=== PATIENT | female | born 1945 | race Caucasian/White ===

== ENCOUNTER 2016-11-29 12:45 | Emergency (ER) | payer OTHER ==
[2016-11-29 13:21] LABS: BILIRUBIN,URINE NEGATIVE (NEGATIVE); PH,URINE 5.5 PH (5.0-7.5)
[2016-11-29 13:30] LABS: UA w/ MICROSCOPIC CHARGE YES
[2016-11-29 13:40] LABS: UR CULTURE IF IND INDICATED; WBC,URINE >25 /HPF (0-5)
[2016-11-29] MEDS ORDERED: levoFLOXacin 250 MG TABLET PO STA (15:00)
--- NOTE | 2016-11-29 15:02 | ED Physician Documentation ---
PD HPI FEMALE - Stated complaint Stated Complaint: UTI - Chief complaint Chief Complaint: UTI - History obtained from History obtained from: Patient - History of Present Illness Timing - onset: Yesterday Timing - details: Abrupt onset (burning and dysuria, no fevers, nausea or flank pain. Freuq[place] UTIs, often with resistances. Requests longer course of fluoroquinolone) Review of Systems Constitutional: denies: Fever, Chills Nose: reports: Reviewed and negative Throat: reports: Reviewed and negative Respiratory: reports: Reviewed and negative PD PAST MEDICAL HISTORY - Past Medical History Cardiovascular: Arrhythmia Respiratory: None Endocrine/Autoimmune: Type 2 diabetes GI: None [employer]ACHINIST: None : Chronic bladder infection HEENT: None Derm: None - Present Medications Home Medications: Ambulatory Orders Medication Instructions Recorded Confirmed Amitriptyline [Elavil] 50 mg PO QPM 10/14/14 11/29/16 Ciprofloxacin [Cipro] 500 mg PO Q12H #20 tablet 10/14/14 11/29/16 Levothyroxine [Synthroid] 50 mcg PO QDAC 10/14/14 11/29/16 Metformin HCl 1,000 mg PO BID 10/14/14 11/29/16 Metoprolol Tartrate [Lopressor] 75 mg PO BID 10/14/14 11/29/16 Phenazopyridine [Pyridium] 200 mg PO TID 6 Days 10/14/14 11/29/16 Rosuvastatin Calcium [Crestor] 10 mg PO DAILY 10/14/14 11/29/16 Estradiol [Estrogel] 50 gm TD 11/29/16 Levofloxacin [Levaquin] 250 mg PO DAILY #7 tablet 11/29/16 Progesterone,Micronized 100 mg PO 11/29/16 [Progesterone] - Allergies Allergies/Adverse Reactions: Allergies Allergy/AdvReac Type Severity Reaction Status Date / Time amoxicillin Allergy Itching Verified 10/14/14 12:43 nitrofurantoin AdvReac Unknown Verified 10/14/14 12:43 [From Macrobid] nitrofurantoin AdvReac Unknown Verified 10/14/14 12:43 macrocrystalline * [From Macrobid] - Social History Does the pt smoke?: No Smoking Status: Never smoker PD ED PE NORMAL - Vitals Vital signs reviewed: Yes - General General: Alert and oriented X 3, No acute distress - Abdomen Abdomen: Soft, Non tender - Back Back: No CVA TTP - Neuro Neuro: Alert and oriented X 3, Normal speech - Psych Psych: Normal mood, Normal affect Results - Vitals Vitals: Vital Signs - 24 hr 11/29/16 12:57 Temperature 36.3 C L Heart Rate 59 L Respiratory 16 Rate Blood Pressure 123/74 O2 Saturation 100 Oxygen O2 Source Room air - Labs Labs: Laboratory Tests 11/29/16 12:53 Urine Color YELLOW Urine Clarity HAZY Urine pH 5.5 Ur Specific [place] <=1.005 Urine Protein NEGATIVE Urine Glucose (UA) NEGATIVE Urine Ketones NEGATIVE Urine Occult Blood NEGATIVE Urine Nitrite NEGATIVE Urine Bilirubin NEGATIVE Urine Urobilinogen 0.2 (NORMAL) Ur Leukocyte Esterase SMALL H Urine RBC 0-5 Urine WBC >25 H Urine WBC Clumps PRESENT Ur Squamous Epith Cells RARE Squamous Urine Bacteria Moderate H Ur Microscopic Review INDICATED Urine Culture Comments INDICATED PD MEDICAL DECISION MAKING - ED course ED course: Will give one week of FQ, but with instruction to stop abx in 3 days but can restart if worsening as on vacatoin Departure - Departure Disposition: 01 Home, Self Care Clinical Impression: Cystitis Condition: Good Record reviewed to determine appropriate education?: Yes Instructions: ED UTI Cystitis Female Prescriptions: Levofloxacin [Levaquin] 250 mg PO DAILY #7 tablet Comments: Stop the antibiotic after 3 days but you can restart it if your symptoms recur. We will culture your urine, the results should be done in 48-72 hours. If an antibiotic change is necessary we will call you. Return if worse in the meantime, especially if you develop increasing flank pain, fevers, or cannot keep down the medication.
[2016-11-29] MEDS ORDERED: levoFLOXacin 250 MG TABLET ONE (15:03)
[2016-11-29 15:09] VITALS: BP 124/69
== END 2016-11-29 15:09 | disposition home or self-care (01) ==
LOC: ED 12:45
DX: N30.00 Acute cystitis without hematuria (principal); E11.9 Type 2 diabetes mellitus without complications; Z79.84 Long term (current) use of oral hypoglycemic drugs; E03.9 Hypothyroidism, unspecified
CPT/HCPCS: 81001; 87077; 87086; 87181; 99283; A9270; 81003